=== PATIENT | male | born 1975 | race Caucasian/White ===

== ENCOUNTER 2017-05-17 17:17 | Inpatient (IN) | payer OTHER ==
[2017-05-17] MEDS: ONDANSETRON (ODT) 4 MG TAB ODT (19:31)
[2017-05-17] MEDS: LIDOCAINE/MYLANTA 40 ML BTL PO (19:34)
[2017-05-17 19:51] LABS: ADD MAN DIFF? NO
[2017-05-17 19:57] LABS: BASOPHIL # 0.1 10^3/ul (0.0-0.1); BASOPHILS % 0.5 % (0.0-2.0); HEMATOCRIT 49.4 % (42.0-52.0); HEMOGLOBIN 16.9 g/dl (14.0-18.0); LYMPHOCYTES # 1.2 10^3/ul (0.8-2.9); LYMPHOCYTES % 8.2 % (15.0-51.0); MEAN CORPUSCULAR HEMOGLOBIN 28.8 pg (29.0-33.0); MEAN CORPUSCULAR HGB CONC 34.2 g/dl (32.0-37.0); MEAN CORPUSCULAR VOLUME 84.3 fl (82.0-101.0); MONOCYTE # 0.3 10^3/ul (0.3-0.9); MONOCYTES % 1.7 % (0.0-11.0); NEUTROPHIL # 13.1 10^3/ul (1.6-7.5); NEUTROPHILS % 89.1 % (39.0-77.0); PLATELET COUNT 310 10^3/UL (140-415); RED BLOOD COUNT 5.86 10^6/ul (4.70-6.10)
[2017-05-17 19:57] LABS: WHITE BLOOD COUNT 14.7 10^3/ul (4.8-10.8)
[2017-05-17 20:12] LABS: ALANINE AMINOTRANSFERASE 45 IU/L (13-69); ALBUMIN 5.1 g/dl (3.3-4.9); ALBUMIN/GLOBULIN RATIO 1.54; ALKALINE PHOSPHATASE 130 IU/L (42-121); AMYLASE 102 U/L (11-123); ANION GAP 18 (8-16); ASPARTATE AMINO TRANSFERASE 26 IU/L (15-46); BILIRUBIN,INDIRECT 1.2 mg/dl (0-1.1); BILIRUBIN,TOTAL 1.2 mg/dl (0.2-1.3); BLOOD UREA NITROGEN 13 mg/dl (7-20); CALCIUM 9.9 mg/dl (8.4-10.2); CARBON DIOXIDE 26 mmol/L (21-31); CHLORIDE 104 mmol/L (97-110); CREATININE 0.71 mg/dl (0.61-1.24); GLUCOSE 155 mg/dl (70-220); LIPASE 117 U/L (23-300); SODIUM 144 mmol/L (135-144); TOTAL PROTEIN 8.4 g/dl (6.1-8.1)
[2017-05-17 20:22] LABS: ADD UMIC YES; UR ASCORBIC ACID NEGATIVE (NEGATIVE); UR BILIRUBIN (Dip) NEGATIVE (NEGATIVE); UR BLOOD (Dip) NEGATIVE (NEGATIVE); UR CLARITY CLEAR (CLEAR); UR COLOR YELLOW (YELLOW); UR GLUCOSE (Dip) NEGATIVE (NEGATIVE); UR KETONES (Dip) 2+ mg/dL (NEGATIVE); UR LEUKOCYTE ESTERASE (Dip) NEGATIVE Leu/ul (NEGATIVE); UR MUCUS FEW /HPF (NONE SEEN); UR NITRITE (Dip) NEGATIVE (NEGATIVE); UR RBC 1 /HPF (0-5); UR SPECIFIC GRAVITY (Dip) 1.024 (1.003-1.030); UR TOTAL PROTEIN (Dip) 2+ mg/dl (NEGATIVE); UR UROBILINOGEN (Dip) NEGATIVE (NEGATIVE); UR WBC 1 /HPF (0-5)
[2017-05-17] MEDS: ONDANSETRON 4 MG INJ IV (22:04)
[2017-05-17] MEDS: morphine 4 MG/ML VIAL IV (22:04)
[2017-05-17] MEDS: IOHEXOL 300MG/ML 30 ML BTL (23:46)
[2017-05-18] MEDS: IOHEXOL 300MG/ML 150 ML BTL (00:19)
[2017-05-18] MEDS: SOD CHLORIDE 0.9% 100 ML (00:19)
[2017-05-18] MEDS: ONDANSETRON 4 MG INJ IV (00:49)
[2017-05-18] MEDS ORDERED: ONDANSETRON 4 MG INJ IV (04:00)
[2017-05-18] MEDS ORDERED: ALBUTEROL/IPRATROPIUM (NEB) 3 ML AMP HHN (04:00)
[2017-05-18] MEDS ORDERED: hydrALAzine 20 MG INJ IV (04:00)
[2017-05-18] MEDS ORDERED: DOCUSATE SODIUM 100 MG CAP PO (04:00)
[2017-05-18] MEDS ORDERED: NITROGLYCERIN (SL) 0.4 MG TAB SL (04:00)
[2017-05-18] MEDS ORDERED: NACL 0.9% 3 ML SYG IV (04:00)
[2017-05-18] MEDS ORDERED: MAGNESIUM HYDROXIDE 30ML CUP PO (04:00)
[2017-05-18] MEDS ORDERED: NA PHOSPHATE/BIPHOS 133 ML ENEMA PR (04:00)
[2017-05-18] MEDS ORDERED: LORAZEPAM 2 MG INJ IV (04:00)
[2017-05-18] MEDS: SOD CHLORIDE 0.9% 1,000 ML IV ×3 (04:41→21:38)
[2017-05-18 06:24] LABS: INR 0.94; PARTIAL THROMBOPLASTIN TIME 27.5 Sec (25.0-35.0); PROTIME 12.7 Sec (11.9-14.9)
[2017-05-18] MEDS: PANTOPRAZOLE 40 MG INJ IV (07:33)
[2017-05-18] MEDS: HEPARIN 5,000 UNIT/0.5 ML VIAL SC ×2 (09:54→20:07)
[2017-05-18] MEDS: morphine 2 MG INJ IV (13:12)
[2017-05-18] MEDS: ACETAMINOPHEN 325 MG TAB PO (18:37)
[2017-05-19 05:13] LABS: ADD MAN DIFF? NO
[2017-05-19] MEDS: PANTOPRAZOLE 40 MG INJ IV (05:15)
[2017-05-19 05:18] LABS: WHITE BLOOD COUNT 8.6 10^3/ul (4.8-10.8)
[2017-05-19 05:18] LABS: BASOPHIL # 0.1 10^3/ul (0.0-0.1); BASOPHILS % 0.9 % (0.0-2.0); EOSINOPHILS # 0.1 10^3/ul (0.0-0.5); EOSINOPHILS % 1.5 % (0.0-7.0); HEMATOCRIT 41.6 % (42.0-52.0); HEMOGLOBIN 14.2 g/dl (14.0-18.0); LYMPHOCYTES # 3.9 10^3/ul (0.8-2.9); LYMPHOCYTES % 45.9 % (15.0-51.0); MEAN CORPUSCULAR HEMOGLOBIN 29.5 pg (29.0-33.0); MEAN CORPUSCULAR HGB CONC 34.1 g/dl (32.0-37.0); MEAN CORPUSCULAR VOLUME 86.3 fl (82.0-101.0); MEAN PLATELET VOLUME 9.3 fl (7.4-10.4); MONOCYTE # 0.5 10^3/ul (0.3-0.9); MONOCYTES % 5.9 % (0.0-11.0); NEUTROPHIL # 3.9 10^3/ul (1.6-7.5); NEUTROPHILS % 45.6 % (39.0-77.0); PLATELET COUNT 258 10^3/UL (140-415); RED BLOOD COUNT 4.82 10^6/ul (4.70-6.10); RED CELL DISTRIBUTION WIDTH 13.4 % (11.5-14.5)
[2017-05-19 06:01] LABS: ANION GAP 11 (8-16); BLOOD UREA NITROGEN 13 mg/dl (7-20); CALCIUM 8.7 mg/dl (8.4-10.2); CARBON DIOXIDE 26 mmol/L (21-31); CHLORIDE 110 mmol/L (97-110); GLUCOSE 93 mg/dl (70-220); MAGNESIUM 2.2 mg/dl (1.7-2.5); PHOSPHORUS 3.7 mg/dl (2.5-4.9); SODIUM 143 mmol/L (135-144)
[2017-05-19 06:09] LABS: CHOL/HDL RATIO 4.2 RATIO; HDL CHOLESTEROL 35 mg/dl (27-67); LDL CHOLESTEROL,CALCULATED 82 mg/dl; TRIGLYCERIDES 160 mg/dl (0-149)
[2017-05-19 06:09] LABS: CHOLESTEROL 149 mg/dl (100-200)
[2017-05-19 06:39] LABS: THYROID STIMULATING HORMONE 0.832 MIU/L (0.465-4.680)
[2017-05-19] MEDS: SOD CHLORIDE 0.9% 1,000 ML IV (07:05)
[2017-05-19 07:36] LABS: HEMOGLOBIN A1C 5.6 % (0-5.9)
[2017-05-19] MEDS: ACETAMINOPHEN 325 MG TAB PO (08:25)
[2017-05-19] MEDS: HEPARIN 5,000 UNIT/0.5 ML VIAL SC ×2 (08:48→20:20)
[2017-05-19] MEDS: DIATR MEGLU/DIATRIZOATE SODIUM 120 ML BTL (10:30)
[2017-05-19] MEDS: HYDROCODONE/APAP (5/325) TAB PO (12:10)
[2017-05-20] MEDS: PANTOPRAZOLE 40 MG INJ IV (05:24)
[2017-05-20 05:55] LABS: ADD MAN DIFF? NO
[2017-05-20 05:57] LABS: BASOPHIL # 0.1 10^3/ul (0.0-0.1); BASOPHILS % 0.6 % (0.0-2.0); EOSINOPHILS # 0.1 10^3/ul (0.0-0.5); EOSINOPHILS % 1.6 % (0.0-7.0); HEMOGLOBIN 14.7 g/dl (14.0-18.0); LYMPHOCYTES # 2.8 10^3/ul (0.8-2.9); LYMPHOCYTES % 30.6 % (15.0-51.0); MEAN CORPUSCULAR HEMOGLOBIN 29.5 pg (29.0-33.0); MEAN CORPUSCULAR HGB CONC 34.2 g/dl (32.0-37.0); MEAN CORPUSCULAR VOLUME 86.3 fl (82.0-101.0); MEAN PLATELET VOLUME 9.3 fl (7.4-10.4); MONOCYTE # 0.6 10^3/ul (0.3-0.9); MONOCYTES % 6.6 % (0.0-11.0); NEUTROPHIL # 5.5 10^3/ul (1.6-7.5); NEUTROPHILS % 60.4 % (39.0-77.0); PLATELET COUNT 263 10^3/UL (140-415); RED BLOOD COUNT 4.98 10^6/ul (4.70-6.10); RED CELL DISTRIBUTION WIDTH 13.3 % (11.5-14.5)
[2017-05-20 06:27] LABS: ANION GAP 11 (8-16); BLOOD UREA NITROGEN 14 mg/dl (7-20); CARBON DIOXIDE 28 mmol/L (21-31); CHLORIDE 107 mmol/L (97-110); CREATININE 0.84 mg/dl (0.61-1.24); GLUCOSE 97 mg/dl (70-220); SODIUM 142 mmol/L (135-144)
[2017-05-20] MEDS: HEPARIN 5,000 UNIT/0.5 ML VIAL SC (09:00)
== END 2017-05-20 11:25 | disposition home or self-care (01) | DRG 390 ==
LOC: FTE 17:17 → MS1 05-18 03:11
DX: K56.609 Unspecified intestinal obstruction, unspecified as to partial versus complete obstruction (principal); K27.7 Chronic peptic ulcer, site unspecified, without hemorrhage or perforation; E66.9 Obesity, unspecified; Z68.30 Body mass index [BMI] 30.0-30.9, adult; E78.1 Pure hyperglyceridemia; Z71.3 Dietary counseling and surveillance; Z87.891 Personal history of nicotine dependence
CPT/HCPCS: 36415; 74176; 74177; 74250; 80048; 80053; 80061; 81001; 82150; 83036; 83690; 83735; 84100; 84439; 84443; 85025; 85610; 85730; 87400; 96372; 96374; 96375; 96376; 99285-25